=== PATIENT | female | born 1950 | race Caucasian/White ===

== ENCOUNTER 2022-07-19 02:32 | Inpatient (IN) | payer OTHER ==
[~2022-07-19] VITALS: Ht 160 cm; Wt 90.7 kg
[2022-07-19] MEDS ORDERED: ASPIRIN 81MG TABLET PO ONE (02:45)
[2022-07-19] MEDS ORDERED: NITROGLYCERIN 0.4MG TABLET SL SL PRN (02:45)
[2022-07-19 03:03] LABS: CHLORIDE 105 mEq/L (98-107)
[2022-07-19 05:18] LABS: MEAN CORPUSCULAR HEMOGLOBIN 22.3 pg (28.0-32.0); MEAN CORPUSCULAR VOLUME 73.7 fL (81.0-99.0); MEAN PLATELET VOLUME 10.7 fl (7.4-10.4); PLATELET 89 x1000/uL (130-400); RED BLOOD CELL COUNT 2.27 mill/uL (4.2-5.4)
[2022-07-19 05:30] LABS: HEMATOCRIT. 16.7 % (36.0-48.0); HEMOGLOBIN. 5.1 g/dL (12.0-16.0)
[2022-07-19 05:54] LABS: PLATELET ESTIMATE DECREASED
[2022-07-19] MEDS ORDERED: IOHEXOL-350 100 ML BOTTLE ONE (06:08)
[2022-07-19] MEDS ORDERED: LEVETIRACETAM 500MG TABLET PO ONE (11:00)
[2022-07-19] MEDS ORDERED: GABAPENTIN 100MG CAPSULE PO ONE (11:15)
[2022-07-19 18:00] VITALS: BP 150/91
[2022-07-19 19:00] VITALS: BP 150/91
[2022-07-19 20:00] VITALS: BP 148/82
[2022-07-19] MEDS ORDERED: LORA-250 PO (20:15)
[2022-07-19] MEDS ORDERED: TRAZ-251 MT (20:15)
[2022-07-19] MEDS ORDERED: BUSP10TA3 PO (20:15)
[2022-07-19] MEDS ORDERED: LEVO125T8 MT (20:15)
[2022-07-19] MEDS ORDERED: CYCL10TA21 MT (20:15)
[2022-07-19] MEDS ORDERED: FURO40TA5 MT (20:15)
[2022-07-19] MEDS ORDERED: ASPI-1497 MT (20:15)
[2022-07-19] MEDS ORDERED: RIVA20TA MT (20:15)
[2022-07-19] MEDS ORDERED: LORA-250 MT (20:15)
[2022-07-19] MEDS ORDERED: PANT40TA51 MT (20:15)
[2022-07-19] MEDS ORDERED: LEVE1000 MT (20:15)
[2022-07-19] MEDS ORDERED: VENL150C52 PO (20:15)
[2022-07-19] MEDS ORDERED: MELA5TAB3 MT (20:15)
[2022-07-19] MEDS ORDERED: POTA-202 MT (20:15)
[2022-07-19] MEDS: TRAZODONE HCL 50MG TABLET PO SCH (20:59)
[2022-07-20] VITALS (9 sets, daily range): BP systolic 119–139; BP diastolic 43–84
[2022-07-20 07:10] LABS: CHLORIDE 110 mEq/L (98-107)
[2022-07-20 07:18] LABS: HEMATOCRIT. 22.7 % (36.0-48.0); MEAN CORPUSCULAR HEMOGLOBIN 24.2 pg (28.0-32.0); MEAN PLATELET VOLUME 10.2 fl (7.4-10.4); PLATELET 100 x1000/uL (130-400); RED BLOOD CELL COUNT 2.87 mill/uL (4.2-5.4); RED CELL DISTRIBUTION WIDTH 23.5 % (11.6-14.6)
[2022-07-20 08:00] LABS: HEMOGLOBIN. 6.9 g/dL (12.0-16.0)
[2022-07-20] MEDS: PANTOPRAZOLE 40MG DR TABLET PO SCH (08:18)
[2022-07-20] MEDS: BUSPIRONE HCL 10MG TABLET PO SCH ×3 (08:18→16:48)
[2022-07-20] MEDS: CYCLOBENZAPRINE 10MG TABLET PO SCH ×3 (08:18→16:49)
[2022-07-20] MEDS: LEVOTHYROXINE SODIUM 125MCG TABLET PO SCH (08:18)
[2022-07-20] MEDS: POTASSIUM CHLORIDE 10MEQ TABLET SR PO SCH (08:18)
[2022-07-20] MEDS ORDERED: COR12 PO (08:35)
[2022-07-20] MEDS ORDERED: LEVE1000 PO (08:38)
[2022-07-20] MEDS ORDERED: HYDR-4001 PO (08:38)
[2022-07-20 09:29] LABS: PLATELET ESTIMATE SLIGHTLY DECREASED
[2022-07-20] MEDS ORDERED: POTASSIUM CHLORIDE 20MEQ TABLET SR PO NR (13:15)
[2022-07-20 15:38] LABS: TOTAL IRON BINDING CAPACITY 404 ug/dL (250-450)
[2022-07-20 16:07] LABS: CLARITY URINE CLEAR (CLEAR); COLOR URINE YELLOW (YELLOW); KETONES URINE NEGATIVE (NEGATIVE); LEUKOCYTE ESTERASE URINE 1+ (NEGATIVE); NITRITE URINE NEGATIVE (NEGATIVE); OCCULT BLOOD URINE NEGATIVE (NEGATIVE); PH URINE 6.5 (4.5-8.0); PROTEIN URINE NEGATIVE (NEGATIVE); SPECIFIC GRAVITY URINE 1.007 (1.005-1.030)
[2022-07-20 17:03] LABS: HEMATOCRIT 25.3 % (36.0-48.0); HEMOGLOBIN 7.9 g/dL (12.0-16.0)
[2022-07-20 17:24] LABS: INR 1.2; PARTIAL THROMBOPLASTIN TIME 29.3 sec (23.4-31.0); PROTHROMBIN TIME 12.9 sec (9.6-11.0)
[2022-07-20] MEDS: TRAZODONE HCL 50MG TABLET PO SCH (21:11)
[2022-07-20] MEDS: LEVETIRACETAM 500MG TABLET PO SCH (22:47)
[2022-07-21 00:27] VITALS: BP 112/56
[2022-07-21 04:00] VITALS: BP 136/86
[2022-07-21 08:00] VITALS: BP 136/95
[2022-07-21] MEDS: LEVOTHYROXINE SODIUM 125MCG TABLET PO SCH (08:07)
[2022-07-21] MEDS: CYCLOBENZAPRINE 10MG TABLET PO SCH ×3 (08:07→16:20)
[2022-07-21] MEDS: LEVETIRACETAM 500MG TABLET PO SCH ×2 (08:07→20:14)
[2022-07-21] MEDS: PANTOPRAZOLE 40MG DR TABLET PO SCH (08:07)
[2022-07-21] MEDS: POTASSIUM CHLORIDE 10MEQ TABLET SR PO SCH (08:07)
[2022-07-21] MEDS: BUSPIRONE HCL 10MG TABLET PO SCH ×3 (08:07→16:20)
[2022-07-21] MEDS ORDERED: HYDROCODONE/ACETAMINOPHEN 5/325MG TABLET PO PRN (10:15)
[2022-07-21] MEDS ORDERED: NALOXONE HCL 0.4 MG/ML 1ML VIAL IV PRN ×2 (10:30)
[2022-07-21] MEDS: FUROSEMIDE 40MG/4ML VIAL IVP SCH (10:56)
[2022-07-21] MEDS: HYDROCODONE/ACETAMINOPHEN 5/325MG TABLET PO PRN ×2 (10:57→17:13)
[2022-07-21] MEDS ORDERED: OMEPRAZOLE 20MG CAPSULE EXTENDED RELEASE PO SCH (11:00)
[2022-07-21] MEDS: DILTIAZEM HCL 60MG TABLET PO SCH ×2 (11:22→17:13)
[2022-07-21 12:00] VITALS: BP 132/75
[2022-07-21 12:54] LABS: *AMPHETAMINES SCREEN URINE NEGATIVE (NEGATIVE); *BARBITURATES SCREEN URINE NEGATIVE (NEGATIVE); *BENZODIAZEPINES SCREEN URINE NEGATIVE (NEGATIVE); *COCAINE SCREEN URINE NEGATIVE (NEGATIVE); CANNABINOID URINE SCREEN NEGATIVE (NEGATIVE); METHADONE URINE SCREEN NEGATIVE (NEGATIVE); OPIATES URINE SCREEN PRESUMTIVE POSITIVE (NEGATIVE); PHENCYCLIDINE URINE SCREEN NEGATIVE (NEGATIVE)
[2022-07-21 16:09] VITALS: BP 124/69
[2022-07-21 16:41] LABS: CHLORIDE 107 mEq/L (98-107)
[2022-07-21 16:55] LABS: HDL CHOLESTEROL 30 mg/dL (40-59); LDL CHOLESTEROL 62 mg/dL (5-100); T4 FREE 1.34 ng/dL (0.76-1.46)
[2022-07-21 17:23] LABS: HEPATITIS B SURFACE ANTIGEN NEGATIVE
[2022-07-21] MEDS ORDERED: POTASSIUM CHLORIDE 20MEQ/PACKET PO NR (18:00)
[2022-07-21] MEDS: IRON SUCROSE COMPLEX 100 MG/5 ML ML IV SCH (18:46)
[2022-07-21] MEDS: TRAZODONE HCL 50MG TABLET PO SCH (20:14)
[2022-07-21] MEDS: CARVEDILOL 3.125 MG TABLET PO SCH (20:17)
[2022-07-21 20:51] LABS: FOLIC ACID (FOLATE) SERUM 8.5 ng/mL (>5.38)
[2022-07-21 20:57] VITALS: BP 117/55
[2022-07-22] VITALS (8 sets, daily range): BP systolic 97–141; BP diastolic 52–79
[2022-07-22 06:45] LABS: BASOPHILS % 0.8 % (0.0-2.0); EOSINOPHILS % 7.7 % (0.0-5.0); HEMATOCRIT. 26.5 % (36.0-48.0); HEMOGLOBIN. 8.3 g/dL (12.0-16.0); LYMPHOCYTES % 29.4 % (20.0-50.0); MEAN CORPUSCULAR HEMOGLOBIN 24.7 pg (28.0-32.0); MEAN CORPUSCULAR VOLUME 78.4 fL (81.0-99.0); MEAN PLATELET VOLUME 9.4 fl (7.4-10.4); MONOCYTES % 12.9 % (2.0-8.0); NEUTROPHILS % 49.2 % (40.0-76.0); PLATELET 132 x1000/uL (130-400); RED BLOOD CELL COUNT 3.38 mill/uL (4.2-5.4); RED CELL DISTRIBUTION WIDTH 23.1 % (11.6-14.6)
[2022-07-22 06:47] LABS: CHLORIDE 109 mEq/L (98-107)
[2022-07-22] MEDS: DILTIAZEM HCL 60MG TABLET PO SCH ×4 (06:59→17:49)
[2022-07-22] MEDS: HYDROCODONE/ACETAMINOPHEN 5/325MG TABLET PO PRN ×2 (07:07→11:59)
[2022-07-22] MEDS: CARVEDILOL 3.125 MG TABLET PO SCH ×2 (09:54→22:21)
[2022-07-22] MEDS: LEVOTHYROXINE SODIUM 125MCG TABLET PO SCH (09:54)
[2022-07-22] MEDS: PANTOPRAZOLE 40MG DR TABLET PO SCH (09:54)
[2022-07-22] MEDS: LEVETIRACETAM 500MG TABLET PO SCH ×2 (09:56→22:21)
[2022-07-22] MEDS: GABAPENTIN 300MG CAPSULE PO SCH ×3 (09:56→22:21)
[2022-07-22] MEDS: BUSPIRONE HCL 10MG TABLET PO SCH ×3 (09:57→17:49)
[2022-07-22] MEDS: CYCLOBENZAPRINE 10MG TABLET PO SCH ×3 (09:57→17:49)
[2022-07-22] MEDS: FUROSEMIDE 40MG/4ML VIAL IVP SCH (09:57)
[2022-07-22] MEDS: POTASSIUM CHLORIDE 10MEQ TABLET SR PO SCH (09:57)
[2022-07-22] MEDS: IRON SUCROSE COMPLEX 100 MG/5 ML ML IV SCH (17:54)
[2022-07-22] MEDS: TRAZODONE HCL 50MG TABLET PO SCH (22:21)
[2022-07-23] VITALS: BP 104/48
[2022-07-23] MEDS: DEXT 5%/0.45% NACL 1000ML 1,000 ML IV SCH ×2 (00:25→20:45)
[2022-07-23 04:00] VITALS: BP 110/56
[2022-07-23 06:28] LABS: BASOPHILS % 1.2 % (0.0-2.0); EOSINOPHILS % 6.6 % (0.0-5.0); HEMATOCRIT. 26.7 % (36.0-48.0); HEMOGLOBIN. 8.1 g/dL (12.0-16.0); LYMPHOCYTES % 33.4 % (20.0-50.0); MEAN CORPUSCULAR HEMOGLOBIN 24.2 pg (28.0-32.0); MEAN CORPUSCULAR VOLUME 79.8 fL (81.0-99.0); MONOCYTES % 9.8 % (2.0-8.0); PLATELET 167 x1000/uL (130-400); RED BLOOD CELL COUNT 3.35 mill/uL (4.2-5.4); RED CELL DISTRIBUTION WIDTH 23.5 % (11.6-14.6)
[2022-07-23 06:30] LABS: INR 1.3; PROTHROMBIN TIME 13.4 sec (9.6-11.0)
[2022-07-23] MEDS: DILTIAZEM HCL 60MG TABLET PO SCH ×4 (06:40→18:00)
[2022-07-23] MEDS: GABAPENTIN 300MG CAPSULE PO SCH ×2 (06:40→20:57)
[2022-07-23 06:45] LABS: CHLORIDE 106 mEq/L (98-107)
[2022-07-23] MEDS: FUROSEMIDE 40MG/4ML VIAL IVP SCH (10:38)
[2022-07-23] MEDS: LORAZEPAM 2MG/ML CPJ IV PRN ×2 (10:40→22:27)
[2022-07-23] MEDS: LEVOTHYROXINE SODIUM 125MCG TABLET PO SCH (10:43)
[2022-07-23] MEDS: CARVEDILOL 3.125 MG TABLET PO SCH ×2 (10:43→20:56)
[2022-07-23] MEDS: LEVETIRACETAM 500MG TABLET PO SCH ×2 (10:44→20:56)
[2022-07-23] MEDS: PANTOPRAZOLE 40MG DR TABLET PO SCH (10:44)
[2022-07-23] MEDS: HYDROCODONE/ACETAMINOPHEN 5/325MG TABLET PO PRN (10:44)
[2022-07-23] MEDS: POTASSIUM CHLORIDE 10MEQ TABLET SR PO SCH (10:45)
[2022-07-23] MEDS: CYCLOBENZAPRINE 10MG TABLET PO SCH ×3 (10:59→17:00)
[2022-07-23] MEDS: BUSPIRONE HCL 10MG TABLET PO SCH ×3 (11:00→17:00)
[2022-07-23] MEDS ORDERED: LABETALOL 5MG/ML SYR 20 MG/4 ML SYRINGE IV PRN (15:15)
[2022-07-23] MEDS ORDERED: HYDROMORPHONE HCL/PF 2MG/ML CPJ IV PRN (15:15)
[2022-07-23] MEDS ORDERED: MEPERIDINE HCL/PF 25MG/ML CPJ IV PRN (15:15)
[2022-07-23] MEDS ORDERED: ONDANSETRON HCL 4MG/2ML INJ IV PRN (15:15)
[2022-07-23 16:54] LABS: PLATELET ESTIMATE NORMAL
[2022-07-23] MEDS: IRON SUCROSE COMPLEX 100 MG/5 ML ML IV SCH (18:00)
[2022-07-23 20:00] VITALS: BP 111/59
[2022-07-23] MEDS: TRAZODONE HCL 50MG TABLET PO SCH (20:56)
[2022-07-24] VITALS: BP 117/68
[2022-07-24 04:00] VITALS: BP 98/38
[2022-07-24] MEDS: DILTIAZEM HCL 60MG TABLET PO SCH ×5 (06:00→23:58)
[2022-07-24] MEDS: GABAPENTIN 300MG CAPSULE PO SCH ×3 (06:00→21:18)
[2022-07-24 07:26] LABS: CHLORIDE 110 mEq/L (98-107)
[2022-07-24 07:31] LABS: EOSINOPHILS % 4.6 % (0.0-5.0); HEMATOCRIT. 28.9 % (36.0-48.0); HEMOGLOBIN. 8.8 g/dL (12.0-16.0); LYMPHOCYTES % 24.4 % (20.0-50.0); MEAN CORPUSCULAR HEMOGLOBIN 24.7 pg (28.0-32.0); MEAN PLATELET VOLUME 9.2 fl (7.4-10.4); MONOCYTES % 10.2 % (2.0-8.0); NEUTROPHILS % 59.8 % (40.0-76.0); PLATELET 187 x1000/uL (130-400); RED BLOOD CELL COUNT 3.57 mill/uL (4.2-5.4); RED CELL DISTRIBUTION WIDTH 23.2 % (11.6-14.6)
[2022-07-24 08:00] VITALS: BP 110/69
[2022-07-24] MEDS: FUROSEMIDE 40MG/4ML VIAL IVP SCH ×2 (10:42→10:45)
[2022-07-24] MEDS: CARVEDILOL 3.125 MG TABLET PO SCH ×2 (10:43→21:17)
[2022-07-24] MEDS: POTASSIUM CHLORIDE 10MEQ TABLET SR PO SCH ×3 (10:44→10:49)
[2022-07-24] MEDS: LORAZEPAM 2MG/ML CPJ IV PRN (10:45)
[2022-07-24] MEDS: HYDROCODONE/ACETAMINOPHEN 10/325MG TABLET PO PRN ×2 (10:46→17:27)
[2022-07-24] MEDS: PANTOPRAZOLE 40MG DR TABLET PO SCH (10:57)
[2022-07-24] MEDS: CYCLOBENZAPRINE 10MG TABLET PO SCH ×3 (10:58→17:33)
[2022-07-24] MEDS: LEVOTHYROXINE SODIUM 125MCG TABLET PO SCH (10:58)
[2022-07-24] MEDS: LEVETIRACETAM 500MG TABLET PO SCH ×2 (10:59→21:18)
[2022-07-24] MEDS: POTASSIUM CHLORIDE 20MEQ TABLET SR PO SCH ×2 (11:03→17:27)
[2022-07-24] MEDS: BUSPIRONE HCL 10MG TABLET PO SCH ×3 (11:03→17:32)
[2022-07-24 12:00] VITALS: BP 109/62
[2022-07-24 20:00] VITALS: BP 130/75
[2022-07-24] MEDS: TRAZODONE HCL 50MG TABLET PO SCH (21:17)
[2022-07-24] MEDS: DEXT 5%/0.45% NACL 1000ML 1,000 ML IV SCH (21:40)
[2022-07-25] VITALS: BP 110/62
[2022-07-25] MEDS: LORAZEPAM 2MG/ML CPJ IV PRN (00:06)
[2022-07-25 04:00] VITALS: BP 96/39
[2022-07-25] MEDS: DILTIAZEM HCL 60MG TABLET PO SCH ×3 (05:41→18:00)
[2022-07-25] MEDS: GABAPENTIN 300MG CAPSULE PO SCH ×2 (05:43→14:00)
[2022-07-25 08:18] LABS: BASOPHILS % 0.5 % (0.0-2.0); EOSINOPHILS % 4.9 % (0.0-5.0); HEMATOCRIT. 28.5 % (36.0-48.0); HEMOGLOBIN. 8.7 g/dL (12.0-16.0); LYMPHOCYTES % 27.7 % (20.0-50.0); MEAN CORPUSCULAR HEMOGLOBIN 24.7 pg (28.0-32.0); MEAN PLATELET VOLUME 9.1 fl (7.4-10.4); MONOCYTES % 11.5 % (2.0-8.0); NEUTROPHILS % 55.4 % (40.0-76.0); PLATELET 176 x1000/uL (130-400); RED BLOOD CELL COUNT 3.52 mill/uL (4.2-5.4); RED CELL DISTRIBUTION WIDTH 24.3 % (11.6-14.6)
[2022-07-25 08:51] LABS: CHLORIDE 106 mEq/L (98-107)
[2022-07-25] MEDS: BUSPIRONE HCL 10MG TABLET PO SCH (09:07)
[2022-07-25] MEDS: LEVETIRACETAM 500MG TABLET PO SCH (09:07)
[2022-07-25] MEDS: PANTOPRAZOLE 40MG DR TABLET PO SCH (09:07)
[2022-07-25] MEDS: CYCLOBENZAPRINE 10MG TABLET PO SCH ×3 (09:07→17:00)
[2022-07-25] MEDS: LEVOTHYROXINE SODIUM 125MCG TABLET PO SCH (09:07)
[2022-07-25] MEDS: HYDROCODONE/ACETAMINOPHEN 10/325MG TABLET PO PRN (09:19)
[2022-07-25] MEDS: CARVEDILOL 3.125 MG TABLET PO SCH (09:19)
[2022-07-25 12:00] VITALS: BP 108/63
[2022-07-25] MEDS ORDERED: POLYVINYL ALCOHOL OPHTH DROPS 15ML BOTHEYE PRN (15:30)
[2022-07-25 16:00] VITALS: BP 112/70
[2022-07-25 17:57] VITALS: BP 136/56
== END 2022-07-25 19:00 | disposition home or self-care (01) | DRG 378 ==
LOC: ER 02:38 → 7WST 15:20 → EDBEDREQTM 15:46 → EDBEDREQ 15:46 → ENRESERV 15:54 → 7WST 21:45
PROVIDERS: ADMIT Internal Medicine; ATTEND Internal Medicine
PROC: 30233N1 Transfusion of Nonautologous Red Blood Cells into Peripheral Vein, Percutaneous Approach (ICD-10-PCS; principal; 2022-07-19)
PROC: 4B02XSZ Measurement of Cardiac Pacemaker, External Approach (ICD-10-PCS; 2022-07-21)
PROC: 0W3P8ZZ Control Bleeding in Gastrointestinal Tract, Via Natural or Artificial Opening Endoscopic (ICD-10-PCS; 2022-07-23)
DX: K31.811 Angiodysplasia of stomach and duodenum with bleeding (principal); D62 Acute posthemorrhagic anemia; I13.0 Hypertensive heart and chronic kidney disease with heart failure and stage 1 through stage 4 chronic kidney disease, or unspecified chronic kidney disease; E44.1 Mild protein-calorie malnutrition; K76.6 Portal hypertension; N39.0 Urinary tract infection, site not specified; I50.32 Chronic diastolic (congestive) heart failure; I48.91 Unspecified atrial fibrillation; Z20.822 Contact with and (suspected) exposure to COVID-19; G40.909 Epilepsy, unspecified, not intractable, without status epilepticus; K74.60 Unspecified cirrhosis of liver; D69.6 Thrombocytopenia, unspecified; E03.9 Hypothyroidism, unspecified; E66.9 Obesity, unspecified; E87.6 Hypokalemia; K21.9 Gastro-esophageal reflux disease without esophagitis; E88.09 Other disorders of plasma-protein metabolism, not elsewhere classified; N18.2 Chronic kidney disease, stage 2 (mild); R06.00 Dyspnea, unspecified; D50.9 Iron deficiency anemia, unspecified; E80.6 Other disorders of bilirubin metabolism; I85.10 Secondary esophageal varices without bleeding; K80.20 Calculus of gallbladder without cholecystitis without obstruction; F32.A Depression, unspecified; R16.1 Splenomegaly, not elsewhere classified; M47.26 Other spondylosis with radiculopathy, lumbar region; M51.16 Intervertebral disc disorders with radiculopathy, lumbar region; Z68.35 Body mass index [BMI] 35.0-35.9, adult; Z59.00 Homelessness unspecified; Z95.0 Presence of cardiac pacemaker; Z87.891 Personal history of nicotine dependence; Z79.899 Other long term (current) drug therapy; Z79.01 Long term (current) use of anticoagulants
CPT/HCPCS: 36415; 71045; 71275; 74176; 76770; 80048; 80053; 80061; 80305; 81003; 82270; 82607; 82728; 82746; 83540; 83550; 83735; 83880; 84439; 84443; 84484; 85014; 85018; 85025; 85044; 85379; 86705; 86709; 86803; 86850; 86900; 86920; 87340; 87426; 93005; 93306; 99291; C1893; C9803; J1940; J2060; P9016; Q9967

== ENCOUNTER 2023-07-13 18:52 | Emergency (ER) | payer OTHER ==
[~2023-07-13] VITALS: Ht 162.6 cm; Wt 86.0 kg
[~2023-07-13 18:52] MED LIST: ASPI-1497 MT; BUSP10TA3 PO; COR12 PO; CYCL10TA21 MT; FURO40TA5 MT; HYDR-4001 PO; LEVE1000 MT; LEVE1000 PO; LEVO125T8 MT; LORA-250 MT; LORA-250 PO; MELA5TAB3 MT; PANT40TA51 MT; POTA-202 MT; RIVA20TA MT; TRAZ-251 MT; VENL150C52 PO
[2023-07-13 18:55] VITALS: BP 156/72; O2SAT 98
[2023-07-13] MEDS ORDERED: ACETAMINOPHEN 325MG TABLET PO ONE (19:15)
[2023-07-13 19:39] VITALS: PULSE 100; RESP 16; TEMP 99.8
== END 2023-07-13 20:36 | disposition home or self-care (01) ==
LOC: ER 18:52
DX: T88.1XXA Other complications following immunization, not elsewhere classified, initial encounter (principal); I10 Essential (primary) hypertension; I48.91 Unspecified atrial fibrillation; Z79.899 Other long term (current) drug therapy; Z86.59 Personal history of other mental and behavioral disorders
CPT/HCPCS: 99283